=== PATIENT | female | born 1955 | race Caucasian/White ===

== ENCOUNTER → 2019-02-20 | Outpatient (CLI) | payer SELFPAY ==
--- NOTE | 2019-02-20 09:02 | Diagnostic Imaging Report ---
INDICATION: Epigastric abdominal pain TECHNIQUE: Multiple real-time escalona scale sonographic images of the abdomen. CORRELATION STUDY: None FINDINGS: LIVER: There is increased echotexture within the visualized portions of the liver. Enlarged at 23.6 cm. GALLBLADDER: No shadowing gallstones or pericholecystic fluid. COMMON BILE DUCT: Nondilated at 5 mm. PANCREAS: Limited in visualization. The visualized portions appearing unremarkable. SPLEEN: Borderline in size. Otherwise unremarkable. ABDOMINAL AORTA: Very limited in visualization. INFERIOR VENA CAVA: Not visualized. RIGHT KIDNEY: 13.1 x 5 x 6.6 cm. Unremarkable. LEFT KIDNEY: 10.3 x 4.5 x 6.0 cm. Unremarkable. OTHER: None. IMPRESSION: 1. Hepatomegaly with likely hepatic steatosis. Dictated by: Dictated on workstation # [id number]
== END ==
LOC: RAD FS 07:42
PROVIDERS: ATTEND Surgery
DX: R10.13 Epigastric pain (principal); R16.0 Hepatomegaly, not elsewhere classified
CPT/HCPCS: 76700

== ENCOUNTER → 2019-04-26 | Outpatient (CLI) | payer SELFPAY ==
[~2019-04-26] MED LIST: CATHETER FLUSH 10 ML SYR IV PRN
--- NOTE | 2019-04-26 18:37 | Diagnostic Imaging Report ---
INDICATION: Epigastric pain. FINDINGS: The patient was administered 5.4 mCi technetium 99m Choletec intravenously and imaging over the abdomen was performed. At 45 minutes, patient ingested 8 ounces of Ensure and a gallbladder ejection fraction was calculated. There is homogeneous uptake of activity by the liver with prompt excretion of activity into the gallbladder and common duct. Normal passage of activity into the small bowel is seen. Gallbladder ejection fraction is normal at 77%. IMPRESSION: Normal HIDA scan and gallbladder ejection fraction. Dictated by: Dictated on workstation # [id number]
== END ==
LOC: CARD 09:14
PROVIDERS: ATTEND Surgery
DX: R10.13 Epigastric pain (principal)
CPT/HCPCS: 78227

== ENCOUNTER → 2019-05-30 | Outpatient (CLI) | payer OTHER ==
[~2019-05-30] MED LIST changes: +HOLD METFORMIN - RECEIVED CONTRAST 20 ML VIAL IV SCH; +IOHEXOL 350 MG/ML 100 ML (OMNIPAQUE 350) VIAL IV ONE; +NS 100 ML (IVPB) BAG IV ONE
--- NOTE | 2019-05-30 11:52 | Diagnostic Imaging Report ---
PROCEDURE: CT abdomen and pelvis with and without contrast. TECHNIQUE: Precontrast acquisitions were acquired through the abdomen and pelvis. Multiple contiguous axial images were obtained through the abdomen and pelvis after the administration of intravenous contrast. Auto Exposure Controls were utilized during the CT exam to meet ALARA standards for radiation dose reduction. INDICATION: Upper and lower abdominal pain for several weeks as well as hematuria. COMPARISON: No prior studies are available for comparison. FINDINGS: The lung bases are clear. Liver demonstrates diffuse low density consistent with hepatic steatosis. No discrete liver mass is identified. The gallbladder is unremarkable. No biliary duct dilatation is seen. The pancreas and spleen are unremarkable. No adrenal mass is detected. Right kidney does contain a nonobstructing calculus in the lower pole approximately 4 mm in size. In addition, there is a 2 mm calculus in the proximal right ureter near the UPJ. No significant hydronephrosis is identified. Left kidney and left ureter are unremarkable. No bladder calculi are seen. Aorta is calcified but nonaneurysmal. The small and large bowel loops are normal in caliber. No obstruction is seen. The appendix is unremarkable. There is no ascites. Bony structures are nonacute. IMPRESSION: 1. Hepatic steatosis. 2. Nonobstructing right renal calculus. In addition, there is a 2 mm proximal right ureteric calculus, without evidence of hydronephrosis. 3. No other significant abnormality is detected. Dictated by: Dictated on workstation # [id number]
== END ==
LOC: RAD FS 10:30
PROVIDERS: ATTEND Family Medicine
DX: K76.0 Fatty (change of) liver, not elsewhere classified (principal); N20.2 Calculus of kidney with calculus of ureter
CPT/HCPCS: 74178

== ENCOUNTER → 2022-02-08 | Outpatient (CLI) | payer MEDICARE, MEDICAID ==
[2022-02-08 09:56] LABS: CALCIUM 9.5 MG/DL (8.5-10.1); CREATININE SERUM 0.84 MG/DL (0.60-1.30); POTASSIUM 4.8 MMOL/L (3.6-5.0)
== END ==
LOC: LAB FS 09:05
PROVIDERS: ATTEND Urology
DX: R31.9 Hematuria, unspecified (principal)
CPT/HCPCS: 36415; 80048

== ENCOUNTER → 2022-02-08 | Outpatient (CLI) | payer MEDICARE, MEDICAID ==
--- NOTE | 2022-02-08 12:54 | Diagnostic Imaging Report ---
PROCEDURE: CT abdomen and pelvis with and without contrast. TECHNIQUE: Precontrast acquisitions were acquired through the abdomen and pelvis. Multiple contiguous axial images were obtained through the abdomen and pelvis after the administration of intravenous contrast. Auto Exposure Controls were utilized during the CT exam to meet ALARA standards for radiation dose reduction. INDICATION: Hematuria. COMPARISON: None available. FINDINGS: On pre contrast imaging, there are few punctate nonobstructing calculi in the lower pole of each kidney. No ureteral stones or obstructive uropathy on either side. Post contrast imaging shows no solid or complex cystic renal mass. Both ureters opacify normally on delayed-phase imaging and there are no filling defects that would suggest urothelial neoplasm. The urinary bladder is partially distended. Lung bases are clear. The liver has diffuse hypoattenuation indicative of steatosis. No focal hepatic lesion. The spleen, pancreas and gallbladder are normal. No adrenal mass. No bowel obstruction or pericolonic inflammatory change. Hysterectomy. No adnexal mass. No abdominal or pelvic lymphadenopathy. Normal-caliber abdominal aorta has moderate atherosclerotic calcifications. No concerning focal osseous lesions. IMPRESSION: 1. There are a few punctate nonobstructing bilateral renal stones. 2. No renal or ureteral mass that would be suspicious for neoplasm. Dictated by: Dictated on workstation # [id number]
== END ==
LOC: RAD FS 09:09
PROVIDERS: ATTEND Urology
DX: N20.0 Calculus of kidney (principal)
CPT/HCPCS: 74178; Q9967

== ENCOUNTER 2022-03-31 07:39 | Outpatient (CLI) | payer MEDICARE, MEDICAID ==
[~2022-03-31] VITALS: Ht 162.6 cm; Wt 126.6 kg
== END 2022-03-31 09:25 | disposition home or self-care (01) ==
LOC: PREOP 07:39
PROVIDERS: ATTEND Surgery
DX: Z01.818 Encounter for other preprocedural examination (principal)

== ENCOUNTER 2022-04-08 08:47 | Day surgery (SDC) | payer MEDICARE, MEDICAID ==
[~2022-04-08] VITALS: Ht 163 cm; Wt 126.6 kg
[2022-04-08] MEDS ORDERED: LACTATED RINGERS 1,000 ML IV STA (08:53)
[2022-04-08] MEDS ORDERED: HURRICAINE EXT TUBE (BENZOCAINE) XX PRN (09:00)
--- NOTE | 2022-04-08 09:09 | Progress Note-Pre Operative ---
Pre-Operative Progress Note H&P Reviewed The H&P was reviewed, patient examined and no changes noted. Time Seen by Provider: 09:07 Date H&P Reviewed: Apr 08, 2022 Time H&P Reviewed: 09:07 Pre-Operative Diagnosis: Dysphagia, abd pain JIN SPARKS DO Apr 08, 2022 09:09
[2022-04-08 09:20] VITALS: BP 149/71
[2022-04-08] MEDS ORDERED: METR-145 PO (09:32)
[2022-04-08] MEDS ORDERED: PANT40TA52 PO (09:32)
[2022-04-08] MEDS ORDERED: LEVO-129 PO (09:32)
[2022-04-08] MEDS ORDERED: CYCL10TA25 PO (09:32)
[2022-04-08] MEDS ORDERED: SEMA0.25 SQ (09:32)
[2022-04-08] MEDS ORDERED: PARO40TA3 PO (09:32)
[2022-04-08] MEDS ORDERED: METF-479 PO (09:32)
[2022-04-08] MEDS ORDERED: ROSU40TA23 PO (09:32)
[2022-04-08] MEDS ORDERED: PROPOFOL INJECTION 50 ML IV ONE (10:04)
[2022-04-08] MEDS ORDERED: MIDAZOLAM 2 MG/2 ML (VERSED) VIAL ONE (10:04)
[2022-04-08 10:20] VITALS: BP 217/90
--- NOTE | 2022-04-08 10:23 | Progress Note-Post Operative ---
Post-Operative Progess Note Surgeon (s)/Warehouse Receiving Clerk (s) Surgeon JIN SPARKS DO Warehouse Receiving Clerk: none Pre-Operative Diagnosis Dysphagia, abd pain Post-Operative Diagnosis Gastritis Esophagitis Hiatal hernia ulcer vs polyp Procedure & Operative Findings Date of Procedure 04/08/22 Procedure Performed/Findings EGD with bx PROCEDURE NOTE: After informed consent was obtained, the patient was brought to the endoscopy suite, placed in bed in left lateral decubitus position. She was administered IV sedation by the VICE PRESIDENT OF INSTRUCTION who then monitored vitals the entire time, heart rate, blood pressure and pulse ox and the scope was inserted down the mouth through the esophagus into the stomach. On the way down I did not see any stricturing or possible cause of dysphagia. I did note some mild esophagitis and took a picture, pushed into the stomach and past the antrum into the duodenum. Duodenum looked good. Pulled back and did a biopsy of the antrum, then retroflexed the scope, saw a 1cm hiatal hernia, took a picture of this and then pulled the scope into the GE junction and then did a biopsy of the GE junction. Pushed the scope back into the stomach and saw what may have been a polyp or an ulcer; took a picture and then did a biopsy. Finally suctioned all the air out of the stomach. At this point pulled the scope up the esophagus and out the mouth. The patient tolerated the procedure, and she recovered in endoscopy suite. Anesthesia Type IV sedation by VICE PRESIDENT OF INSTRUCTION Estimated Blood Loss Estimated blood loss (mL): scant Specimens/Packing Specimens Removed atnral bx body of stomach bx GE jxn bx Ulcer vs polyp bx JIN SPARKS DO Apr 08, 2022 10:23
--- NOTE | 2022-04-08 10:24 | Endoscopy Discharge Instruct ---
Endo Procedure/Findings Findings 1.: Gastritis 2.: Hiatal Hernia 3.: Other Findings (esophagitis) 4.: Other Findings (polyp vs ulcer near antrum) Discharge Instructions - Activity: You might feel a little sleepy until tomorrow. This is due to the medicine you received to relax you. Until tomorrow, you should: NOT drive a car, operate machinery or power tools. NOT drink any alcoholic beverages. NOT make any important decisions or sign importortant papers. Do not return to work until tomorrow, unless otherwise instructed. Resume previous activities tomorrow. Diet: Start by taking liquids. If you tolerate liquids, advance to solid food. 1.: EGD in 1 year Notify Physician - If you experience excessive bleeding, unusual abdominal pain, fever, or chest pain, contact your doctor immediately. JIN SPARKS DO Apr 08, 2022 10:24
[2022-04-08 10:26] VITALS: BP 141/63
[2022-04-08 10:40] VITALS: BP 129/56
--- NOTE | 2022-04-08 14:40 | Anesthesia-General Post-Op ---
MAC Patient Condition Mental Status/LOC: Same as Preop Cardiovascular: Satisfactory Nausea/Vomiting: Absent Respiratory: Satisfactory Pain: Controlled Complications: Absent Post Op Complications Complications None Follow Up Care/Instructions Patient Instructions None needed. Anesthesiology Discharge Order Discharge Order Patient is doing well, no complaints, stable vital signs, no apparent adverse anesthesia problems. No complications reported per nursing. LOLIS WILSON CRNA Apr 08, 2022 14:40
== END 2022-04-08 10:56 | disposition home or self-care (01) ==
LOC: ENDO 08:47
PROVIDERS: ATTEND Surgery
DX: K29.50 Unspecified chronic gastritis without bleeding (principal); K20.90 Esophagitis, unspecified without bleeding; K44.9 Diaphragmatic hernia without obstruction or gangrene; Z86.010 Personal history of colon polyps
CPT/HCPCS: 82947

== ENCOUNTER → 2022-06-01 | Outpatient (CLI) | payer MEDICARE, MEDICAID ==
[~2022-06-01] MED LIST changes: -CATHETER FLUSH 10 ML SYR IV PRN; +CYCL10TA25 PO; -HOLD METFORMIN - RECEIVED CONTRAST 20 ML VIAL IV SCH; -IOHEXOL 350 MG/ML 100 ML (OMNIPAQUE 350) VIAL IV ONE; +LEVO-129 PO; +METF-479 PO; +METR-145 PO; -NS 100 ML (IVPB) BAG IV ONE; +PANT40TA52 PO; +PARO40TA3 PO; +ROSU40TA23 PO; +SEMA0.25 SQ
--- NOTE | 2022-06-01 17:53 | Diagnostic Imaging Report ---
Indication: Diarrhea. Time of Exam: 3:22 PM The bowel gas pattern is nonobstructed. No pathologic calcifications are seen. No definite free air is identified. Impression: No acute feature is detected. Dictated by: Dictated on workstation # [id number]
== END ==
LOC: RAD FS 15:01
PROVIDERS: ATTEND Family Medicine
DX: R19.7 Diarrhea, unspecified (principal)
CPT/HCPCS: 74018